=== PATIENT | female | born 1960 | race Caucasian/White ===

== ENCOUNTER 2022-02-25 10:29 | Inpatient (IN) | payer BC ==
[2022-02-25] MEDS ORDERED: Acetaminophen 325 MG TAB PO PRN (11:18)
[2022-02-25] MEDS ORDERED: Ondansetron PF 4 MG/2 ML Vial IVP PRN (11:18)
[2022-02-25] MEDS ORDERED: HYDROcodone/Acetaminophen 5/325 mg Tablet PO PRN (11:18)
[2022-02-25] MEDS ORDERED: Dextrose 50% Abboject 50 ML SYRINGE SLOW IVP PRN (11:22)
[2022-02-25] MEDS ORDERED: Dextrose 5% in Water 1,000 ML IV PRN (11:22)
[2022-02-25] MEDS ORDERED: Levothyroxine Sodium 125 MCG TAB PO SCH (11:27)
[2022-02-25] MEDS ORDERED: Enoxaparin Sodium 40 MG/0.4 ML SYRINGE SC SCH (11:45)
[2022-02-25 12:19] VITALS: BMI 25.0
[2022-02-25 12:30] LABS: Cardiac Risk 4.4 (Less than 4.5)
[2022-02-25 12:36] LABS: Troponin I Less than 0.010 ng/mL (< 0.028)
[2022-02-25] MEDS: HumaLOG 300 UNITS/3 ML VIAL SC PRN ×2 (13:16→17:24)
[2022-02-25 15:10] LABS: Hemoglobin A1c 6.4 % (4.0-6.0)
[2022-02-25 16:26] LABS: Troponin I Less than 0.010 ng/mL (< 0.028)
[2022-02-25] MEDS: Rosuvastatin 20 MG TAB PO SCH (22:31)
[2022-02-26 04:23] LABS: #Basophils 0.1 10x3/uL (0.0-0.2); #Eosinphils 0.3 10x3/uL (0.0-0.5); #Monocytes 0.9 10x3/uL (0.0-1.1); #Neutrophils 5.3 10x3/uL (1.5-8.4); %Eosinophils 2.8 % (0.0-6.0); %Lymphocytes 29.3 % (18.0-47.0); %Monocytes 9.3 % (0.0-10.0); %Neutrophils 57.3 % (40.0-75.0); Hemoglobin 12.4 g/dL (12.0-15.5); Mean Corpuscular HGB CONC 34.1 g/dL (32.0-36.0); Mean Corpuscular Hemoglobin 27.5 pg (27.0-33.0); Mean Corpuscular Volume 80.7 fl (81.6-98.3); Mean Platelet Volume 8.9 fl (7.4-10.4); Platelet Count 438 10x3/uL (150-450); RBC Distribution Width 13.1 % (11.5-14.5); Red Blood Cell (RBC) Count 4.51 10x6/uL (3.90-5.03); White Blood Cell (WBC) Count 9.3 10x3/uL (3.5-10.5)
[2022-02-26 04:41] LABS: ALT (SGPT) Less than 6 U/L (8-55); AST (SGOT) 9 U/L (5-34); Albumin 3.7 g/dL (3.4-4.8); Alkaline Phosphatase 102 U/L (40-110); Anion Gap 13 mmol/L (10-20); BUN (Urea Nitrogen) 16 mg/dL (9.8-20.1); Bilirubin, Total 0.3 mg/dL (0.2-1.2); Calc. Creatinine Clearance 98 mL/min (70-130); Calcium 9.5 mg/dL (7.8-10.44); Carbon Dioxide 25 mmol/L (23-31); Chloride 106 mmol/L (98-107); Estimated GFR 100; Globulin 3.1 g/dL (2.4-3.5); Glucose 145 mg/dL (80-115); Magnesium 1.9 mg/dL (1.6-2.6); Potassium 3.7 mmol/L (3.5-5.1); Protein, Total 6.8 g/dL (5.8-8.1); Sodium 140 mmol/L (136-145)
[2022-02-26] MEDS: Levothyroxine Sodium 25 MCG TAB PO SCH (07:07)
[2022-02-26] MEDS: Levothyroxine Sodium 112 MCG TAB PO SCH (07:08)
[2022-02-26] MEDS: Aspirin Chewable 81 MG TAB PO SCH (08:43)
[2022-02-26] MEDS ORDERED: Enoxaparin Sodium 40 MG/0.4 ML SYRINGE SC SCH (09:00)
[2022-02-26] MEDS ORDERED: Communication Order-Pharmacy FS SCH (11:15)
[2022-02-26] MEDS: HumaLOG 300 UNITS/3 ML VIAL SC PRN ×2 (18:58→21:35)
[2022-02-26] MEDS: Rosuvastatin 20 MG TAB PO SCH (20:27)
[2022-02-27] MEDS: Aspirin Chewable 81 MG TAB PO SCH (05:15)
[2022-02-27] MEDS: Levothyroxine Sodium 112 MCG TAB PO SCH (05:16)
[2022-02-27] MEDS: Levothyroxine Sodium 25 MCG TAB PO SCH (05:16)
[2022-02-27] MEDS ORDERED: Adenosine 6 MG/2 ML VIAL ONE (08:51)
[2022-02-27] MEDS ORDERED: Nitroglycerin 50 MG/250 ML BOT 250 ML ONE (08:51)
[2022-02-27] MEDS ORDERED: Heparin 10,000 UNITS/ 10 ML VIAL ONE (08:51)
[2022-02-27] MEDS ORDERED: Bivalirudin 250 MG VIAL ONE (08:52)
[2022-02-27] MEDS ORDERED: Verapamil 5 MG/2 ML VIAL ONE (08:53)
[2022-02-27] MEDS ORDERED: Lidocaine 1% PF 5 ML VIAL ONE (09:00)
[2022-02-27] MEDS ORDERED: Fentanyl 100 MCG/2 ML VIAL ONE (10:17)
[2022-02-27] MEDS ORDERED: Midazolam HCl 2 mg/2 ml Vial ONE ×2 (10:17→10:47)
[2022-02-27] MEDS ORDERED: Nitroglycerin 0.4 MG TAB (25 Tab Bottle) SL PRN (11:09)
[2022-02-27] MEDS ORDERED: Acetaminophen/Codeine 30-300mg Tablet PO PRN ×2 (11:09)
[2022-02-27] MEDS ORDERED: Sodium Chloride 0.9% 1,000 ML IV SCH (11:15)
[2022-02-27] MEDS: HumaLOG 300 UNITS/3 ML VIAL SC PRN ×2 (11:50→17:38)
[2022-02-27] MEDS ORDERED: Iopamidol 300 61% 100 ML VIAL FS ONE (15:25)
[2022-02-27 17:50] VITALS: TEMP 98.5
[2022-02-27 17:52] VITALS: BP 125/91
== END 2022-02-27 18:16 | disposition home or self-care (01) | DRG 287 ==
LOC: CSHTELE 10:29 → INTOOBSV 10:29 → OBSVTOIN 02-26 12:24
PROVIDERS: ADMIT Internal Medicine; ATTEND Family Medicine
PROC: 4A023N7 Measurement of Cardiac Sampling and Pressure, Left Heart, Percutaneous Approach (ICD-10-PCS; principal; 2022-02-27)
PROC: B2111ZZ Fluoroscopy of Multiple Coronary Arteries using Low Osmolar Contrast (ICD-10-PCS; 2022-02-27)
DX: R07.89 Other chest pain (principal); I25.10 Atherosclerotic heart disease of native coronary artery without angina pectoris; E11.9 Type 2 diabetes mellitus without complications; E03.9 Hypothyroidism, unspecified; Z96.41 Presence of insulin pump (external) (internal); E78.5 Hyperlipidemia, unspecified; F17.201 Nicotine dependence, unspecified, in remission; R06.02 Shortness of breath; Z20.822 Contact with and (suspected) exposure to COVID-19; Z79.82 Long term (current) use of aspirin; Z79.02 Long term (current) use of antithrombotics/antiplatelets; Z95.5 Presence of coronary angioplasty implant and graft; Z88.0 Allergy status to penicillin; Z79.890 Hormone replacement therapy; Z79.899 Other long term (current) drug therapy; Z90.710 Acquired absence of both cervix and uterus; Z98.890 Other specified postprocedural states; Z82.49 Family history of ischemic heart disease and other diseases of the circulatory system; Z80.9 Family history of malignant neoplasm, unspecified
CPT/HCPCS: 36415; 36416; 80053; 80061; 83036; 83735; 85025; 93005; 93010; 93306; 93458; 96372; 99152; 99153; C1769; C1894; G0378; J0153; J0583; J1644; J1650; J1815; J2250; J3010; J7050; Q9967; U0003; U0005

== ENCOUNTER 2022-10-11 10:44 | Day surgery (SDC) | payer BC ==
[2022-10-09 12:31] VITALS: BMI 25.7
[2022-10-11] MEDS ORDERED: Ondansetron PF 4 MG/2 ML Vial ONE (11:31)
[2022-10-11] MEDS ORDERED: fentaNYL 50 mcg/mL 1 mL Vial ONE (12:44)
[2022-10-11] MEDS ORDERED: Promethazine HCl 25 MG/ML VIAL ONE (13:08)
== END 2022-10-11 13:50 | disposition home or self-care (01) ==
LOC: CSHSDC 10:44
PROVIDERS: ATTEND Internal Medicine Gastroenterology
PROC: 0DB58ZX Excision of Esophagus, Via Natural or Artificial Opening Endoscopic, Diagnostic (ICD-10-PCS; principal; 2022-10-11)
DX: K25.9 Gastric ulcer, unspecified as acute or chronic, without hemorrhage or perforation (principal); K29.70 Gastritis, unspecified, without bleeding; K29.80 Duodenitis without bleeding; K31.89 Other diseases of stomach and duodenum; E03.9 Hypothyroidism, unspecified; M54.40 Lumbago with sciatica, unspecified side; G89.29 Other chronic pain; E11.9 Type 2 diabetes mellitus without complications; G43.909 Migraine, unspecified, not intractable, without status migrainosus; I10 Essential (primary) hypertension; E78.5 Hyperlipidemia, unspecified; Z88.0 Allergy status to penicillin; Z79.890 Hormone replacement therapy; Z79.899 Other long term (current) drug therapy
CPT/HCPCS: 36416; 88305; J2405; J2550; J3010